=== PATIENT | male | born 1965 ===

== ENCOUNTER 2017-12-21 09:53 | Observation (INO) | payer OTHER ==
[2017-12-21 09:55] VITALS: BMI 22.1
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
[2017-12-21] MEDS ORDERED: Multivitamin (MVI) 10 ML, Thiamine 100 MG, Folic Acid 1 MG in Dextrose 5%/0.45% NS 1,00... IV ONE (12:26)
[2017-12-21 12:43] LABS: BASO % 0.2 % (0.0-2.0); EOS % 0.1 % (0.0-4.0); HEMOGLOBIN 12.4 g/dL (12.0-18.0); LYMPH # 0.7 K/uL (1.0-4.3); LYMPH % 8.4 % (20.0-40.0); MEAN CORPUSCULAR HEMOGLOBIN 32.4 pg (27.0-31.0); MEAN CORPUSCULAR HGB CONC 34.4 g/dL (33.0-37.0); MEAN PLATELET VOLUME 8.4 fl (7.2-11.7); MONO # 0.6 K/uL (0.0-0.8); MONO % 7.4 % (0.0-10.0); NEUT # 6.5 K/uL (1.8-7.0); NEUT % 83.9 % (50.0-75.0); NRBC % 0.2 % (0.0-0.0); PLATELET COUNT 160 K/uL (130-400); RBC 3.83 Mil/uL (4.40-5.90); RED CELL DISTRIBUTION WIDTH 14.6 % (11.5-14.5); WHITE BLOOD COUNT 7.8 K/uL (4.8-10.8)
[2017-12-21 12:49] LABS: ALB/GLOB RATIO 1.2 (1.0-2.1); ALBUMIN 4.4 g/dL (3.5-5.0); ALT/SGPT 183 U/L (21-72); AST/SGOT 319 U/L (17-59); BLOOD UREA NITROGEN 12 mg/dl (9-20); GFR AFRICAN-AMERICAN > 60; GFR NON-AFRICAN AMERICAN > 60
--- NOTE | 2017-12-21 13:03 | CT ---
PROCEDURE: CT HEAD WITHOUT CONTRAST. HISTORY: hallucinations COMPARISON: None available. TECHNIQUE: Axial computed tomography images were obtained through the head/brain without intravenous contrast. Radiation dose: Total exam DLP = 929 mGy-cm. This CT exam was performed using one or more of the following dose reduction techniques: Automated exposure control, adjustment of the mA and/or kV according to patient size, and/or use of iterative reconstruction technique. FINDINGS: HEMORRHAGE: No intracranial hemorrhage. BRAIN: No mass effect or edema. Mild atrophy. No significant chronic microvascular ischemic changes. VENTRICLES: Unremarkable. No hydrocephalus. CALVARIUM: Unremarkable. PARANASAL SINUSES: Unremarkable as visualized. No significant inflammatory changes. MASTOID AIR CELLS: Unremarkable as visualized. No inflammatory changes. OTHER FINDINGS: None. IMPRESSION: No acute intracranial pathology.
[2017-12-21 13:10] LABS: BANDS 2 % (0-2); BASOPHIL 1 % (0-2); LYMPHOCYTE 7 % (20-50); MONOCYTE 6 % (0-10); NEUTROPHIL 84 % (42-75); PLATELET ESTIMATE NORMAL (NORMAL); TOTAL CELLS COUNTED 100
[2017-12-21 13:12] LABS: ANISOCYTOSIS SLIGHT
[2017-12-21] MEDS: Lactated Ringer's 1,000 ML IV SCH ×3 (14:28→22:16)
[2017-12-21] MEDS ORDERED: Potassium Chloride 20 mEq ER Tab PO ONE ×2 (14:34→14:40)
[2017-12-21] MEDS ORDERED: Artificial Tears Opht Soln OU PRN (15:07)
[2017-12-21] MEDS ORDERED: Alum-Mag Hydrox-Simethicone Susp (30 mL) PO PRN (15:08)
[2017-12-21 15:14] LABS: ABG ALLEN TEST YES; ARTERIAL BLOOD GAS HCO3 19.9 mmol/L (21-28); ARTERIAL BLOOD GAS O2 SAT 99.4 % (95-98); ARTERIAL BLOOD GAS PCO2 33 mm/Hg (35-45); ARTERIAL BLOOD GAS PH 7.35 (7.35-7.45); ARTERIAL BLOOD GAS PO2 82 mm/Hg (80-100); ARTERIAL BLOOD GAS TCO2 19.2 mmol/L (22-28)
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
--- NOTE | 2017-12-21 15:50 | CP.CCUPN ---
CCU Subjective - Physician Review Subjective (Free Text): 52M with h/o chronic ETOH abuse, admitted for auditory hallucinations, and grieving ideations over ?? recent brothers several days ago. Awake and alert, observed to be calmly eating his meal in ER, in no obvious distress, nor overt ETOH withdrawal without any manifestation of tachycardia, diaphoresis, SOB , fevers, except for mild tremors. He has been medicated with Ativan and Librium already prior to my exam. Other VS and I/Os reviewed. ROS: No other pertinent negs or positives on 10+ system review. PMSFH: All other Nursing and physician documentation reviewed to date; no new pertinent info noted relevant to current medical problems. CXR: ( my interp): none. CT Head results reviewed: negative for acute pathology EKG: NSR 92/min, no acute ischemic changes. EXAM- HEENT: no icterus NECK: No JVD, supple, carotids equal upstroke bilat/no bruits CHEST: decreased BS bases, otherwise clear bilat, no wheezes audible HEART: regular distant, S1S2, no murmur audible, no rubs. ABD: soft, no distention, no tympany, no palp tenderness, BS hypoactive EXT: No edema. No peripheral/ digital cyanosis, no calf tenderness or palpable cords, distal pulses intact and symmetrical. NEURO: no gross focal motor deficits SKIN: no rashes LABS: WBC= 7.8 HGB= 12.4 PLTs= 160K Na= 129 K= 3.5 HCO3=18 CL= 90 BUN/Cr= 12/0.8 BS= 65 MAJOR PROBLEMS: 1. Metabolic Encephalopathy with AG Metabolic Acidosis, r/o AKA versus other recent toxic ingestion. 2. Chronic ETOH Abuse with Delirium 3. Auditory Hallucinations, r/o major Psychotic Disorder 4. Hyponatremia with Euvolemic state PLAN: 1. Telemetry admission with close observation for any increasing Delirium. Librium started in ER, watch for excessive sedation. No evident need for airway protection. 2. Check Serum Osmolarity for any osmolar gap; calculated plasma osmolarity is approx 289. If so, obtain blood for other toxin levels: Methanol, eth glycol , isoprop alcohol, Propylene glycol, acetaminophen and salicylate levels. 3. Check Beta-OH-B levels. 4. Check ABG shock panel, lactate level. 5. Hydrate with D5NS for now after Thiamine / Folate administration; until other labs are resulted. 6. Seizure precautions. 7. US Abdomen / Liver. CCU Objective - Vital Signs / Intake & Output Vital Signs (Last 4 hours): Vital Signs Temp Pulse Resp BP Pulse Ox 12/21/17 15:37 98.9 F 108 H 21 115/84 12/21/17 14:41 98.9 F 108 H 21 115/84 98 12/21/17 14:14 100 Intake and Output (Last 8hrs): Intake & Output 12/21/17 12/21/17 12/21/17 06:59 14:59 22:59 Weight 150 lb - Medications Active Medications: Active Medications Generic Name Dose Route Start Last Admin Trade Name Freq PRN Reason Stop Dose Admin Al Hydrox/Mg Hydrox/Simethicone 30 ml 12/21/17 15:08 Maalox Plus 30 Ml PO Q6 PRN Indigestion / Heartburn Artificial Tears 2 drop 12/21/17 15:07 Artificial Tears OU Q6 PRN Dry eyes Chlordiazepoxide 50 mg 12/21/17 20:00 Librium PO Q6H LORENA Docusate Sodium 100 mg 12/21/17 17:00 Colace PO BID LORENA Folic Acid 1 mg 12/22/17 09:00 Folic Acid PO DAILY LORENA Multivitamins/Vitamin C 10 ml/ 1,011.2 mls @ 125 mls/hr 12/21/17 12:26 13:11 Thiamine HCl 100 mg/ Folic IV 12/21/17 20:31 125 mls/hr Acid 1 mg/ Dextrose/Sodium .Q8H6M ONE Administration Chloride Lactated Ringer's 1,000 mls @ 1,000 mls/hr 12/21/17 13:45 12/21/17 14:28 Lactated Ringer's IV 1,000 mls/hr .Q1H LORENA Administration Lactated Ringer's 1,000 mls @ 150 mls/hr 12/21/17 14:45 12/21/17 15:35 Lactated Ringer's IV 150 mls/hr .Q6H40M LORENA Administration Lorazepam 1 mg 12/21/17 14:44 Ativan IVP Q2H PRN Symptoms of alcohol withdrawl Lorazepam 2 mg 12/21/17 14:56 Ativan IVP Q2H PRN For CIWA score > 15 Multivitamins/Minerals 1 tab 12/22/17 09:00 Therapeutic-M Tab PO DAILY LORENA Thiamine HCl 100 mg 12/22/17 09:00 Vitamin B1 Tab PO DAILY LORENA - Patient Studies Lab Studies: Lab Studies 12/21/17 12/21/17 12/21/17 Range/Units 15:08 14:47 13:00 WBC (4.8-10.8) K/uL RBC (4.40-5.90) Mil/uL Hgb (12.0-18.0) g/dL Hct (35.0-51.0) % MCV (80.0-94.0) fl MCH (27.0-31.0) pg MCHC (33.0-37.0) g/dL RDW (11.5-14.5) % Plt Count (130-400) K/uL MPV (7.2-11.7) fl Neut % (Auto) (50.0-75.0) % Lymph % (Auto) (20.0-40.0) % [place] % (Auto) (0.0-10.0) % Eos % (Auto) (0.0-4.0) % Baso % (Auto) (0.0-2.0) % Neut # (Auto) (1.8-7.0) K/uL Lymph # (Auto) (1.0-4.3) K/uL [place] # (Auto) (0.0-0.8) K/uL Eos # (Auto) (0.0-0.7) K/uL Baso # (Auto) (0.0-0.2) K/uL Neutrophils % (Manual) (42-75) % Band Neutrophils % (0-2) % Lymphocytes % (Manual) (20-50) % Monocytes % (Manual) (0-10) % Basophils % (Manual) (0-2) % Platelet Estimate (NORMAL) Anisocytosis (manual) pCO2 33 L (35-45) mm/Hg pO2 82 (80-100) mm/Hg HCO3 19.9 L (21-28) mmol/L ABG pH 7.35 (7.35-7.45) ABG Total CO2 19.2 L (22-28) mmol/L ABG O2 Saturation 99.4 H (95-98) % ABG Base Excess -6.4 L (-2.0-3.0) mmol/L Feng Test Yes ABG Potassium 3.1 L (3.6-5.2) mmol/L A-a O2 Difference 26.0 mm/Hg Glucose 116 H (75-110) mg/dL Lactate 2.3 H (0.7-2.1) mmol/L FiO2 21.0 % Blood Gas Comments Lactate 2.3 Crit Value Called To marco a Gonzales Crit Value Called By 22 Crit Value Read Back Y Blood Gas Notified Time 1514 Sodium 124.0 L (132-148) mmol/l Potassium (3.6-5.0) MMOL/L Chloride 96.0 L (98-107) mmol/L Carbon Dioxide (22-30) mmol/L Anion Gap (10-20) BUN (9-20) mg/dl Creatinine (0.8-1.5) mg/dl Est GFR ( Amer) Est GFR (Non-Af Amer) Random Glucose (75-110) mg/dL Calcium (8.4-10.2) mg/dL Total Bilirubin (0.2-1.3) mg/dl AST (17-59) U/L ALT (21-72) U/L Alkaline Phosphatase (38-126) U/L Ammonia 14 L (16-60) umo/L Total Protein (6.3-8.2) G/DL Albumin (3.5-5.0) g/dL Globulin (2.2-3.9) gm/dL Albumin/Globulin Ratio (1.0-2.1) Lipase 168 (23-300) U/L Arterial Blood Potassium 3.1 L (3.6-5.2) mmol/L Alcohol, Quantitative (0-10) mg/dl 12/21/17 12/21/17 12/21/17 Range/Units 12:29 12:28 10:51 WBC 7.8 (4.8-10.8) K/uL RBC 3.83 L (4.40-5.90) Mil/uL Hgb 12.4 (12.0-18.0) g/dL Hct 36.0 (35.0-51.0) % MCV 94.0 (80.0-94.0) fl MCH 32.4 H (27.0-31.0) pg MCHC 34.4 (33.0-37.0) g/dL RDW 14.6 H (11.5-14.5) % Plt Count 160 (130-400) K/uL MPV 8.4 (7.2-11.7) fl Neut % (Auto) 83.9 H (50.0-75.0) % Lymph % (Auto) 8.4 L (20.0-40.0) % [place] % (Auto) 7.4 (0.0-10.0) % Eos % (Auto) 0.1 (0.0-4.0) % Baso % (Auto) 0.2 (0.0-2.0) % Neut # (Auto) 6.5 (1.8-7.0) K/uL Lymph # (Auto) 0.7 L (1.0-4.3) K/uL [place] # (Auto) 0.6 (0.0-0.8) K/uL Eos # (Auto) 0.0 (0.0-0.7) K/uL Baso # (Auto) 0.0 (0.0-0.2) K/uL Neutrophils % (Manual) 84 H (42-75) % Band Neutrophils % 2 (0-2) % Lymphocytes % (Manual) 7 L (20-50) % Monocytes % (Manual) 6 (0-10) % Basophils % (Manual) 1 (0-2) % Platelet Estimate Normal (NORMAL) Anisocytosis (manual) Slight pCO2 (35-45) mm/Hg pO2 (80-100) mm/Hg HCO3 (21-28) mmol/L ABG pH (7.35-7.45) ABG Total CO2 (22-28) mmol/L ABG O2 Saturation (95-98) % ABG Base Excess (-2.0-3.0) mmol/L Feng Test ABG Potassium (3.6-5.2) mmol/L A-a O2 Difference mm/Hg Glucose (75-110) mg/dL Lactate (0.7-2.1) mmol/L FiO2 % Blood Gas Comments Crit Value Called To Crit Value Called By Crit Value Read Back Blood Gas Notified Time Sodium 129 L (132-148) mmol/l Potassium 3.5 L (3.6-5.0) MMOL/L Chloride 90 L (98-107) mmol/L Carbon Dioxide 18 L (22-30) mmol/L Anion Gap 25 H (10-20) BUN 12 (9-20) mg/dl Creatinine 0.8 (0.8-1.5) mg/dl Est GFR ( Amer) > 60 Est GFR (Non-Af Amer) > 60 Random Glucose 65 L (75-110) mg/dL Calcium 9.0 (8.4-10.2) mg/dL Total Bilirubin 1.0 (0.2-1.3) mg/dl AST 319 H (17-59) U/L ALT 183 H (21-72) U/L Alkaline Phosphatase 60 (38-126) U/L Ammonia (16-60) umo/L Total Protein 8.1 (6.3-8.2) G/DL Albumin 4.4 (3.5-5.0) g/dL Globulin 3.7 (2.2-3.9) gm/dL Albumin/Globulin Ratio 1.2 (1.0-2.1) Lipase (23-300) U/L Arterial Blood Potassium (3.6-5.2) mmol/L Alcohol, Quantitative 108 H (0-10) mg/dl Laboratory Results - last 24 hr 12/21/17 12/21/17 12/21/17 10:51 12:28 12:29 WBC 7.8 RBC 3.83 L Hgb 12.4 Hct 36.0 MCV 94.0 MCH 32.4 H MCHC 34.4 RDW 14.6 H Plt Count 160 MPV 8.4 Neut % (Auto) 83.9 H Lymph % (Auto) 8.4 L [place] % (Auto) 7.4 Eos % (Auto) 0.1 Baso % (Auto) 0.2 Neut # (Auto) 6.5 Lymph # (Auto) 0.7 L [place] # (Auto) 0.6 Eos # (Auto) 0.0 Baso # (Auto) 0.0 Neutrophils % (Manual) 84 H Band Neutrophils % 2 Lymphocytes % (Manual) 7 L Monocytes % (Manual) 6 Basophils % (Manual) 1 Platelet Estimate Normal Anisocytosis (manual) Slight pCO2 pO2 HCO3 ABG pH ABG Total CO2 ABG O2 Saturation ABG Base Excess Feng Test ABG Potassium A-a O2 Difference Glucose Lactate FiO2 Blood Gas Comments Crit Value Called To Crit Value Called By Crit Value Read Back Blood Gas Notified Time Sodium 129 L Potassium 3.5 L Chloride 90 L Carbon Dioxide 18 L Anion Gap 25 H BUN 12 Creatinine 0.8 Est GFR ( Amer) > 60 Est GFR (Non-Af Amer) > 60 Random Glucose 65 L Calcium 9.0 Total Bilirubin 1.0 AST 319 H ALT 183 H Alkaline Phosphatase 60 Ammonia Total Protein 8.1 Albumin 4.4 Globulin 3.7 Albumin/Globulin Ratio 1.2 Lipase Arterial Blood Potassium Alcohol, Quantitative 108 H 12/21/17 12/21/17 12/21/17 13:00 14:47 15:08 WBC RBC Hgb Hct MCV MCH MCHC RDW Plt Count MPV Neut % (Auto) Lymph % (Auto) [place] % (Auto) Eos % (Auto) Baso % (Auto) Neut # (Auto) Lymph # (Auto) [place] # (Auto) Eos # (Auto) Baso # (Auto) Neutrophils % (Manual) Band Neutrophils % Lymphocytes % (Manual) Monocytes % (Manual) Basophils % (Manual) Platelet Estimate Anisocytosis (manual) pCO2 33 L pO2 82 HCO3 19.9 L ABG pH 7.35 ABG Total CO2 19.2 L ABG O2 Saturation 99.4 H ABG Base Excess -6.4 L Feng Test Yes ABG Potassium 3.1 L A-a O2 Difference 26.0 Glucose 116 H Lactate 2.3 H FiO2 21.0 Blood Gas Comments Lactate 2.3 Crit Value Called To marco a Gonzales Crit Value Called By 22 Crit Value Read Back Y Blood Gas Notified Time 1514 Sodium 124.0 L Potassium Chloride 96.0 L Carbon Dioxide Anion Gap BUN Creatinine Est GFR ( Amer) Est GFR (Non-Af Amer) Random Glucose Calcium Total Bilirubin AST ALT Alkaline Phosphatase Ammonia 14 L Total Protein Albumin Globulin Albumin/Globulin Ratio Lipase 168 Arterial Blood Potassium 3.1 L Alcohol, Quantitative EKG/Cardiology Studies: Cardiology / EKG Studies 12/21/17 12:26 EKG [ELECTROCARDIOGRAM] Stat Comment: Mode Of Transportation: Reason For Exam: tremors Review of Systems - Review of Systems All systems: reviewed and no additional remarkable complaints except (as above) Critical Care Progress Note - Nutrition Nutrition: Nutrition Category Date Time Status Regular Diet [DIET] Diets 12/22/17 Breakfast Active
[2017-12-21] MEDS ORDERED: Influenza Vaccine 18yr & older 0.5 ML/45 MCG SYR IM ONE (19:54)
[2017-12-22 00:40] VITALS: RESP 18
[2017-12-22 05:44] LABS: HEMOGLOBIN 11.2 g/dL (12.0-18.0); MEAN CELL VOLUME 95.7 fl (80.0-94.0); MEAN CORPUSCULAR HEMOGLOBIN 32.8 pg (27.0-31.0); MEAN CORPUSCULAR HGB CONC 34.3 g/dL (33.0-37.0); RBC 3.42 Mil/uL (4.40-5.90); RED CELL DISTRIBUTION WIDTH 14.3 % (11.5-14.5); WHITE BLOOD COUNT 3.6 K/uL (4.8-10.8)
[2017-12-22 06:15] LABS: BLOOD UREA NITROGEN 14 mg/dl (9-20); CALCIUM 8.5 mg/dL (8.4-10.2); GFR AFRICAN-AMERICAN > 60; GFR NON-AFRICAN AMERICAN > 60
[2017-12-22] MEDS: Lactated Ringer's 1,000 ML IV SCH ×2 (06:35→13:18)
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
--- NOTE | 2017-12-22 07:43 | CARD ---
APPROVED REPORT EKG Measurement Heart [id number] <Conclusion> Normal sinus rhythm Normal ECG
[2017-12-22] MEDS ORDERED: Multivitamin With Minerals Tab PO SCH (09:00)
[2017-12-22 11:23] LABS: BARBITURATES, UR NEGATIVE (NEGATIVE); BENZODIAZEPINES, UR POSITIVE (NEGATIVE); OPIATES, UR NEGATIVE (NEGATIVE); PHENCYCLIDINE, UR NEGATIVE (NEGATIVE)
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
[2017-12-22 15:48] VITALS: BP 108/66; PULSE 88; TEMP 99.2
[2017-12-22 15:55] VITALS: O2SAT 100
== END 2017-12-22 17:00 | disposition home or self-care (01) ==
LOC: H.ER 09:53 → H.ERHOLD 13:49 → INTOOBSV 13:49 → H.TEL 16:26
PROVIDERS: ADMIT Internal Medicine; ATTEND Internal Medicine
DX: F10.231 Alcohol dependence with withdrawal delirium (principal); F10.232 Alcohol dependence with withdrawal with perceptual disturbance; Y90.5 Blood alcohol level of 100-119 mg/100 ml; E87.1 Hypo-osmolality and hyponatremia; E87.6 Hypokalemia; Z23 Encounter for immunization
CPT/HCPCS: 36415; 70450; 80048; 80053; 80320; 80324; 80345; 80346; 80349; 80353; 80358; 80361; 82010; 82140; 82803; 83690; 83930; 83992; 85025; 85027; 90471; 93005; 96361; 96374; 96375; 99285; G0378; J2060; J3411; J7042; J7120; Q2035